=== PATIENT | male | born 1940 | race Hispanic/Latino ===

== ENCOUNTER 2023-03-24 09:46 | Emergency (ER) | payer MEDICARE, OTHER, SELFPAY ==
[2023-03-24 10:23] VITALS: BP 154/71; PULSE 93; RESP 18; TEMP 36.5; O2SAT 100
--- NOTE | 2023-03-24 10:34 | ED.URI ---
HPI - URI/Sore Throat General Chief Complaint: Upper Respiratory Infection Stated Complaint: nasal drainage,congestion Time Seen by Provider: 03/24/23 10:34 Source: patient Mode of arrival: ambulatory Limitations: no limitations History of Present Illness HPI Narrative: 82-year-old male presents with complaint of sinus congestion and pressure for the past 10 days. He reports postnasal drainage that is worse at night and in the morning. He states he developed a cough 2 days ago. No chest pain or shortness of breath. He reports history of pneumonia twice, wanted to get checked out to make sure he does not have pneumonia. Afebrile. Using Mucinex, Coricidin and a nasal spray. Reports no relief of symptoms. All systems reviewed and negative except as noted above. Related Data Home Medications Medication Instructions Recorded Confirmed Lactobacillus acidophilus 10 03/24/23 billion cell capsule (Probiotic) alogliptin 25 mg tablet 25 mg PO DAILY 03/24/23 03/24/23 amlodipine 5 mg tablet mg 03/24/23 atorvastatin 20 mg tablet mg 03/24/23 empagliflozin 12.5 mg-metformin 1 tablet PO BID 03/24/23 03/24/23 1,000 mg tablet hydrochlorothiazide 25 mg tablet mg 03/24/23 levothyroxine 88 mcg tablet 88 mcg PO DAILY 03/24/23 03/24/23 losartan 50 mg tablet mg 03/24/23 omeprazole 20 mg capsule,delayed mg 03/24/23 release Allergies Allergy/AdvReac Type Severity Reaction Status Date / Time No Known Allergies Allergy Verified 03/24/23 10:37 Review of Systems Review of Systems: CONSTITUTIONAL: Denies fever, chills, or sweats. reports fatigue. EYES: Denies visual changes, redness, or discharge. ENT: Reports rhinorrhea, congestion, sore throat, sinus congestion postnasal drainage. Denies otalgia. CARDIOVASCULAR: Denies chest pain, palpitations, or edema. RESPIRATORY: Reports cough. Denies dyspnea. GASTROINTESTINAL: Denies abdominal pain, nausea, vomiting, or diarrhea. GENITOURINARY: Denies dysuria or hematuria. SKIN: Denies rash or itching. MUSCULOSKELETAL: Denies back pain, joint pain, or myalgia. NEUROLOGIC: Denies headache, numbness, or weakness. PSYCHIATRIC: Denies anxiety or depression. All other systems reviewed are negative, except as documented in HPI. PMFSH Comments At time of signature, agree with nursing past medical, surgical, social and family history. There is no relevant family history pertinent to the presenting complaint. Exam Narrative: GENERAL: This is a well-nourished, well-developed patient, in no apparent distress. HEAD: normocephalic, atraumatic. EYES: PERRL. Sclera clear/white. Vision is grossly intact. EARS: External ears normal, auditory canals clear and without drainage, TMs normal without perforation. Hearing grossly intact. NOSE: External nose normal with purulence drainage, erythema and swelling to both nares. Bilateral maxillary sinus tenderness. THROAT: Mucous membranes moist, Erythema postnasal drainage. NECK: Neck supple, non-tender without lymphadenopathy, masses or thyromegaly. CARDIOVASCULAR: Regular rate and rhythm without murmurs, gallops, or rubs. RESPIRATORY: Clear to auscultation. Breath sounds equal bilaterally. No wheezes, rales, or rhonchi. SKIN: warm, Dry, intact with no suspicious lesions or rash, good texture and turgor. NEURO: awake, alert, and oriented to person, place and time. There were no obvious focal neurologic abnormalities. EXTREMITIES: No joint tenderness, effusion, or edema noted. Course Course Level of Care: Express Care Visit Vital Signs Vital signs: Vital Signs Temperature 36.5 C 03/24/23 10:23 Pulse Rate 93 03/24/23 10:23 Respiratory Rate 18 03/24/23 10:23 Blood Pressure 154/71 H 03/24/23 10:23 Pulse Oximetry 100 03/24/23 10:23 Oxygen Delivery Room Air 03/24/23 10:23 Temperature 36.5 C 03/24/23 10:23 Pulse Rate 93 03/24/23 10:23 Respiratory Rate 18 03/24/23 10:23 Blood Pressure 154/71
== END 2023-03-24 10:51 | disposition home or self-care (01) ==
PROVIDERS: Emergency Provider Nurse Practitioner Family
DX: J06.9 Acute upper respiratory infection, unspecified (principal); R05.9 Cough, unspecified; E78.00 Pure hypercholesterolemia, unspecified; I10 Essential (primary) hypertension; K21.9 Gastro-esophageal reflux disease without esophagitis; E11.9 Type 2 diabetes mellitus without complications; E03.9 Hypothyroidism, unspecified
CPT/HCPCS: 99203; G0463